=== PATIENT | female | born 2000 | race Caucasian/White ===

== ENCOUNTER 2019-07-26 02:09 | Emergency (ER) | payer SELFPAY ==
--- NOTE | 2019-07-26 02:15 | ED_ITS ---
Entered by Shawnee Mann, acting as scribe for Barrett Lan DO HPI - Chest Pain General: Chief Complaint: Chest Pain Stated Complaint: CHEST/BACK PAIN Time Seen by Provider: 07/26/19 02:15 Source: patient Limitations: no limitations History of Present Illness: HPI narrative: 19 yo f came to the er pov for chest and back pain. Onset was last night. Pt states that she has been having some chest pain in the center. Pt states that when she breathes in she had the chest pain. Pt stated that she is having some abd pain in the epigastric area. MD complaint: chest pain and other (back pain) Onset (ago): day(s) (last night ) Timing of current episode: episodic Prior episodes: Yes Onset: during rest Pain radiation: none Severity: mild Quality: sharp and other Relieving factors: nothing Exacerbating factors: nothing Associated symptoms: Reports dyspnea (mild), nausea, palpitations and vomiting; Deny abdominal pain or fever(s) Risk Factors: Thoracic aortic dissection risk factors: none Related Data: On Oral Contraceptives: No Review of Systems Const: Denies: fever or chills Eyes: Denies: change in vision or blurry vision ENMT: Denies: painful swallowing, swelling of lips/tongue, bleeding gums, dental pain, Change in hearing, nose bleeds, post nasal drip or facial/sinus pain Card: Reports: chest pain and palpitations; Denies: irregular heart rhythm or shortness of breath when lying down Resp: Reports: shortness of breath (mild); Denies: productive cough, non-productive cough or wheezing GI: Reports: nausea and vomiting; Denies: abdominal pain, blood in stool or black tarry stool : Denies: painful urination, urinary frequency, urinary urgency or blood in urine Musc: Denies: redness Skin/Breast: Denies: rash, itching or redness Neuro: Denies: headache, dizziness, vertigo, confusion or seizure-like activity PFSH ED PFSH: Statuses (acute, chronic, etc) shown below reflect problem list status as previously entered and may not be historically accurate Social History Smoking and tobacco status: never smoked Physical Exam Const: GENERAL APPEARANCE: well developed ORIENTATION/CONSCIOUSNESS: Yes oriented to person, Yes oriented to place and Yes oriented to time HENMT: COMMON NORMALS: normocephalic, external ears normal and external nose normal HEAD & SCALP: normocephalic; no scalp tenderness FACE & SINUS: normal facial exam NOSE: external nose normal and no nasal discharge EXTERNAL EAR: Yes external ears normal MOUTH: tongue normal TEETH & GINGIVA: no abnormal tooth and associated gingiva THROAT: posterior oropharynx normal; no peritonsillar mass Eye: COMMON NORMALS: PERRL, EOMs intact bilaterally and conjunctivae normal EYELID: eyelids normal CONJUNCTIVA: Yes conjunctivae normal PUPIL: Yes PERRL Neck/C-Spine: COMMON NORMALS: full ROM GENERAL: No tracheal deviation CERVICAL SPINE: Yes normal cervical lordosis and No cervical spine tenderness Chest: COMMONS NORMALS: inspection of chest normal CHEST: Yes tenderness Resp: COMMON NORMALS: clear to auscultation bilaterally EFFORT & INSPECTION: No tachypneic, No respiratory distress, No retractions, No uses accessory muscles and No tracheal deviation AUSCULTATION: clear to auscultation bilaterally, no rhonchi, no wheezes and lung sounds not diminished Cardio: COMMON NORMALS: regular rate and regular rhythm RATE: regular rate RHYTHM: regular rhythm HEART SOUNDS: no murmurs PERIPHERAL PULSES: radial pulses present GI: COMMON NORMALS: soft to palpation INSPECTION: No abdominal distension AUSCULTATION: No hyperactive bowel sounds and No hypoactive bowel sounds PALPATION: Yes soft, Yes tender (epigastric) Details: RUQ, No guarding and No rigid PERCUSSION: no dullness to percussion and no tympanic to percussion : COMMON NORMALS: Yes no CVA tenderness BLADDER/KIDNEY EXAM: Yes no CVA tenderness Back/Pelvis: COMMON NORMALS: no CVA tenderness Neuro: SENSORIUM/ORIENTATION: Yes oriented to person, Yes oriented to place and Yes oriented to time Psych: COMMON NORMALS: mental status grossly normal Skin: COMMON NORMALS: no rashes or lesions noted GENERAL SKIN EXAM: no rashes or lesions noted Course ED course: EKG shows sinus rhythm with sinus arrhythmia, no ST changes. Troponin is negative. White blood cell count was 14. Gallbladder ultrasound performed as she was tender over the right upper quadrant and had a minimal elevation of 1 liver enzyme was negative. She is improved significantly after Toradol. Vital Signs: Vital signs: Vital Signs Temperature 98.0 F 07/26/19 02:24 Pulse Rate 90 01/27/20 04:45 Respiratory Rate 16 07/26/19 04:45 Blood Pressure 122/77 07/26/19 04:45 Pulse Oximetry 97 07/26/19 04:45 MDM - Chest Pain Lab Data: Labs: Lab Results 07/26/19 07/26/19 07/26/19 Range/Units 02:58 02:58 02:58 WBC 14.1 H (4.5-13.0) 10^3/ uL RBC 4.59 (4.1-5.3) 10^6/u L Hgb 13.7 (11.5-15.3) g/dL Hct 40.6 (37.0-47.0) % MCV 88.5 (81-99) fL MCH 29.8 (28.0-34.0) pg MCHC 33.7 (30.0-36.0) g/dL RDW 11.9 L (12.1-15.1) % Plt Count 430 H (130-400) 10^3/c mm MPV 9.6 (7.4-10.4) fL Neut % (Auto) 56.7 % Lymph % (Auto) 34.2 % [place] % (Auto) 7.3 % Eos % (Auto) 1.2 % Baso % (Auto) 0.4 % Neut # (Auto) 8.0 (1.8-8.0) 10^3/u L Lymph # (Auto) 4.8 (1.5-6.5) 10^3/u L [place] # (Auto) 1.0 H (0.2-0.9) 10^3/u L Eos # (Auto) 0.2 (0.0-0.8) 10^3/u L Baso # (Auto) 0.1 (0.0-0.1) 10^3/u L Nucleated RBC % (a uto) 0 % Nucleated RBCs # 0.0 /100WBC Sodium 140 (136-145) mmol/L Potassium 3.7 (3.5-5.1) mmol/L Chloride 101 (98-107) mmol/L Carbon Dioxide 25 (22-29) mmol/L Anion Gap 17.7 (5-19) BUN 11 (6-20) mg/dL Creatinine 0.8 (0.5-0.9) mg/dL GFR Calculation 91.4 (90-130) mL/min Glucose 122 H (74-109) mg/dL Calcium 10.4 (8.5-10.5) mg/dL Total Bilirubin 0.2 (0.15-1.2) mg/dL AST 31 (0-32) U/L ALT 42 H (0-33) U/L Alkaline Phosphata se 48 (35-105) IU/L Troponin T Gen 5 n g/L 6 (0-10) ng/mL Total Protein 8.2 (6.6-8.7) g/dL Albumin 5.1 (3.5-5.2) g/dL Globulin 3.1 (1.3-4.6) g/dL Lipase 19 (13-60) U/L HCG, Qual (Negative) Urine Color (Yellow) Urine Appearance (CLEAR) Urine pH (5-7) Ur Specific Gravit y (1.005-1.030) Urine Protein (Negative) Urine Glucose (UA) (Normal) Urine Ketones (Negative) Urine Occult Blood (Negative) Urine Nitrate (Negative) Urine Bilirubin (NEGATIVE) Urine Urobilinogen (Negative) mg/dL Ur Leukocyte Kylee ase (Negative) Urine RBC (0-2) /hpf Urine WBC (0-5) /hpf Ur Squamous Epith Cells (0-5) Urine Bacteria (NONE) 07/26/19 07/26/19 Range/Units 02:58 03:28 WBC (4.5-13.0) 10^3/ uL RBC (4.1-5.3) 10^6/u L Hgb (11.5-15.3) g/dL Hct (37.0-47.0) % MCV (81-99) fL MCH (28.0-34.0) pg MCHC (30.0-36.0) g/dL RDW (12.1-15.1) % Plt Count (130-400) 10^3/c mm MPV (7.4-10.4) fL Neut % (Auto) % Lymph % (Auto) % [place] % (Auto) % Eos % (Auto) % Baso % (Auto) % Neut # (Auto) (1.8-8.0) 10^3/u L Lymph # (Auto) (1.5-6.5) 10^3/u L [place] # (Auto) (0.2-0.9) 10^3/u L Eos # (Auto) (0.0-0.8) 10^3/u L Baso # (Auto) (0.0-0.1) 10^3/u L Nucleated RBC % (a uto) % Nucleated RBCs # /100WBC Sodium (136-145) mmol/L Potassium (3.5-5.1) mmol/L Chloride (98-107) mmol/L Carbon Dioxide (22-29) mmol/L Anion Gap (5-19) BUN (6-20) mg/dL Creatinine (0.5-0.9) mg/dL GFR Calculation (90-130) mL/min Glucose (74-109) mg/dL Calcium (8.5-10.5) mg/dL Total Bilirubin (0.15-1.2) mg/dL AST (0-32) U/L ALT (0-33) U/L Alkaline Phosphata se (35-105) IU/L Troponin T Gen 5 n g/L (0-10) ng/mL Total Protein (6.6-8.7) g/dL Albumin (3.5-5.2) g/dL Globulin (1.3-4.6) g/dL Lipase (13-60) U/L HCG, Qual Negative (Negative) Urine Color Yellow (Yellow) Urine Appearance Clear (CLEAR) Urine pH 6.5 (5-7) Ur Specific Gravit y 1.020 (1.005-1.030) Urine Protein Neg (Negative) Urine Glucose (UA) Norm (Normal) Urine Ketones Negative (Negative) Urine Occult Blood Neg (Negative) Urine Nitrate Negative (Negative) Urine Bilirubin Neg (NEGATIVE) Urine Urobilinogen Norm (Negative) mg/dL Ur Leukocyte Kylee ase Negative (Negative) Urine RBC Rare (0-2) /hpf Urine WBC 0-4 H (0-5) /hpf Ur Squamous Epith Cells 0-4 H (0-5) Urine Bacteria Trace (NONE) Discharge Plan Discharge Patient Disposition: Home, Self-Care Clinical Impression: Atypical chest pain Condition: Stable Prescriptions: New ketorolac 10 mg tablet 10 mg PO Q8H PRN (Reason: pain) Qty: 10 RF: 0 Discharge Orders: Discharge Order (Routine); Ordered 07/26/19 Ordered By: Barrett Lan Referrals: Cristian Hirsch, LELO [Family Provider] - Discharge Diet: Advance as tolerated Discharge Activity: Increase activity as tolerated Patient Instructions: Chest Pain (ED), Costochondritis (ED) Activity Restrictions/Additional Instructions: Return for fever greater than 100, worsening shortness of breath, worsening pain despite treatment, other concerning symptoms Discharge Date/Time: 07/26/19 04:45 Coding Level of Care Code ED Burrer Hand for g Fwd The documentation recorded by the Johnathan fletcher Stephanie Lyn, accurately reflects the service I personally performed and the decisions made by Riky denson Jeremy John, DO Jul 26, 2019 02:09
[2019-07-26 02:24] VITALS: BP 129/85; PULSE 100; RESP 16; TEMP 36.7; O2SAT 99; BMI 33.5
--- NOTE | 2019-07-26 02:42 | US_ITS ---
WS: [id number] RIGHT UPPER QUADRANT ULTRASOUND HISTORY: RIGHT upper quadrant pain and tenderness. COMPARISON: None available. Liver: 15.7 cm in length. Normal size and echogenicity with no intrahepatic dilatation. No mass. Gallbladder: Normally distended gallbladder with no stones or wall thickening. CBD: 3.3 mm Pancreas: Normal size and echogenicity. Right kidney: 11.8 cm in length. Normal echogenicity with no mass or hydronephrosis. Aorta and IVC: Unremarkable. No ascites. US/US gall bladder [id number] IMPRESSION: Normal RIGHT upper quadrant ultrasound.
--- NOTE | 2019-07-26 02:42 | ECG_ITS ---
Measurements Intervals [place] Rate: 86 P: 33 ID: [id number] QRS: 69 QRSD: 100 T: 41 QT: 335 QTc: 401 SINUS RHYTHM WITH SINUS ARRHYTHMIA No previous ECG available for comparison Electronically Signed On 07-26-2019 17:51:36 HYBRID POWERTRAIN DEVELOPMENT ENGINEER by Tomeka Russo M.D. [email or web address]
--- NOTE | 2019-07-26 02:49 | XR_ITS ---
WS: [id number] CHEST XRAY TECHNIQUE: Portable chest. CLINICAL INFORMATION: cp COMPARISON: None. FINDINGS: Heart: Normal cardiac silhouette. Lungs: Lungs are clear. No consolidation or pleural effusion. Bones: Normal visualized bony structures. XR/XR chest 1V portable [id number] IMPRESSION: Normal chest
[2019-07-26] MEDS: ketorolac 30 mg/mL INJ IVP (02:59)
[2019-07-26] MEDS: ondansetron 2 mg/ML SDV 2 mL 4 MG IVP (02:59)
[2019-07-26 03:02] LABS: Basophils # 0.1 10^3/uL (0.0-0.1); Basophils % 0.4 %; Eosinophils # 0.2 10^3/uL (0.0-0.8); Eosinophils % 1.2 %; Hematocrit 40.6 % (37.0-47.0); Hemoglobin 13.7 g/dL (11.5-15.3); Lymphocytes # 4.8 10^3/uL (1.5-6.5); Lymphocytes % 34.2 %; Mean Corpuscular HGB Conc 33.7 g/dL (30.0-36.0); Mean Corpuscular Hemoglobin 29.8 pg (28.0-34.0); Mean Corpuscular Volume 88.5 fL (81-99); Mean Platelet Volume 9.6 fL (7.4-10.4); Monocytes % 7.3 %; Neutrophils % 56.7 %; Nucleated Red Blood Cells % 0 %; Platelet Count 430 10^3/cmm (130-400); Red Blood Count 4.59 10^6/uL (4.1-5.3); Red Cell Distribution Width 11.9 % (12.1-15.1); White Blood Count 14.1 10^3/uL (4.5-13.0)
[2019-07-26 03:22] LABS: HCG, Serum Qual Negative (Negative)
[2019-07-26 03:33] LABS: Alanine Aminotransferase 42 U/L (0-33); Albumin Level 5.1 g/dL (3.5-5.2); Alkaline Phosphatase 48 IU/L (35-105); Anion Gap 17.7 (5-19); Aspartate Amino Transferase 31 U/L (0-32); Blood Urea Nitrogen 11 mg/dL (6-20); Calcium 10.4 mg/dL (8.5-10.5); Carbon Dioxide 25 mmol/L (22-29); Chloride 101 mmol/L (98-107); Globulin 3.1 g/dL (1.3-4.6); Glomerular Filtration Rate 91.4 mL/min (90-130); Glucose 122 mg/dL (74-109); Lipase 19 U/L (13-60); Potassium 3.7 mmol/L (3.5-5.1); Sodium 140 mmol/L (136-145); Total Bilirubin 0.2 mg/dL (0.15-1.2); Total Protein 8.2 g/dL (6.6-8.7)
[2019-07-26 04:00] LABS: Troponin T (5th) Once 6 ng/mL (0-10)
[2019-07-26 04:14] LABS: Bacteria Urine TRACE; Bilirubin Urine Neg (NEGATIVE); Blood Urine Neg (Negative); Glucose Urine UA Norm (Normal); Ketones Urine Negative (Negative); Leukocyte Esterase Urine Negative (Negative); Nitrate Urine Negative (Negative); Protein Urine Neg (Negative); RBC Urine RARE /hpf (0-2); Squamous Epithelial Cell Urine 0-4 (0-5); Urine Appearance Clear (CLEAR); Urine Color Yellow (Yellow); Urobilinogen Urine Norm (Negative); WBC Urine 0-4 /hpf (0-5); pH Urine 6.5 (5-7)
[2019-07-26 04:45] VITALS: BP 122/77; PULSE 90; RESP 16; O2SAT 97
== END 2019-07-26 04:45 | disposition home or self-care (01) ==
PROVIDERS: Emergency Provider Emergency Medicine; Family Provider Nurse Practitioner Family
DX: R07.89 Other chest pain (principal)
CPT/HCPCS: 71045; 76705; 80053; 81001; 83690; 84484; 84703; 85025; 93005; 96374; 99281; J1885; J2405

== ENCOUNTER → 2020-03-17 11:22 | Outpatient (BNVA) | payer SELFPAY | PROVIDERS: Family Provider Nurse Practitioner Family; Visit Provider Nurse Practitioner Women's Health | DX: Z01.419 Encounter for gynecological examination (general) (routine) without abnormal findings (principal); N91.5 Oligomenorrhea, unspecified | CPT/HCPCS: 83036; 84146; 84439; 84443; 84702; 88175 ==

== ENCOUNTER → 2020-07-20 14:19 | Outpatient (BNVA) | payer SELFPAY | PROVIDERS: Family Provider Nurse Practitioner Family; Visit Provider Nurse Practitioner Women's Health | DX: N97.0 Female infertility associated with anovulation (principal); E28.2 Polycystic ovarian syndrome; R68.82 Decreased libido | CPT/HCPCS: 81025 ==

== ENCOUNTER → 2023-02-12 13:05 | Outpatient (BNVA) | payer OTHER, SELFPAY | PROVIDERS: Family Provider Nurse Practitioner Family; PCP Family Medicine; Visit Provider Family Medicine | DX: R53.83 Other fatigue (principal); R68.82 Decreased libido; E28.2 Polycystic ovarian syndrome; D64.9 Anemia, unspecified | CPT/HCPCS: 80053; 82306; 82607; 82728; 83540; 83735; 84402; 84439; 84443; 84481; 85025 ==

== ENCOUNTER 2023-02-27 13:16 | Outpatient (CLI) | payer OTHER, BC, MEDICAID, SELFPAY ==
--- NOTE | 2023-02-27 13:30 | US_ITS ---
WS: [id number] US pelv w/transvag [id number] HISTORY: suspect pcos COMPARISON: None available. Uterus: 8.8 cm x 4.2 cm x 3.3 cm. Normal size anteverted uterus. No fibroid or mass. Endometrium: 1.5 cm. Mildly prominent endometrium. No mass or increased vascularity. There is no foca l mass or increased vascularity identified. Right ovary: 3.3 cm x 1.9 cm x 4.2 cm. Normal size and vascularity, no cystic or solid masses. Severa l small peripheral follicles throughout the ovary. The number of follicles does appear to be less cassy n 20. Left ovary: 4.3 cm x 2.3 cm x 3.7 cm. Normal size and vascularity, no cystic or solid masses. Several small follicles throughout the ovary. The number of follicles is probably less than 20. No free fluid in the cul-de-sac. IMPRESSION: 1. Mildly thickened endometrium but otherwise negative. 2. Numerous follicles within each ovary but the number of follicles is less than 20. By imaging canno t confirm PCOS.
== END 2023-02-27 13:17 | disposition home or self-care (01) ==
PROVIDERS: PCP Family Medicine; Visit Provider Family Medicine
DX: N97.0 Female infertility associated with anovulation (principal); R93.89 Abnormal findings on diagnostic imaging of other specified body structures
CPT/HCPCS: 76830; 76856

== ENCOUNTER → 2023-12-29 15:31 | Outpatient (BNVA) | payer OTHER, SELFPAY | PROVIDERS: PCP Family Medicine; Visit Provider Family Medicine | DX: N93.9 Abnormal uterine and vaginal bleeding, unspecified (principal); D64.9 Anemia, unspecified | CPT/HCPCS: 82728; 83540; 85025 ==

== ENCOUNTER → 2023-12-31 14:23 | Outpatient (BNVA) | payer OTHER, SELFPAY | PROVIDERS: PCP Family Medicine; Visit Provider Family Medicine | DX: N97.0 Female infertility associated with anovulation (principal) | CPT/HCPCS: 85025 ==

== ENCOUNTER 2024-12-16 07:37 | Emergency (ER) | payer OTHER, SELFPAY ==
[2024-12-16 07:51] VITALS: BP 132/103; PULSE 100; RESP 18; TEMP 36.9; O2SAT 100
--- NOTE | 2024-12-16 08:07 | ED_ITS ---
HPI - Female Genitourinary 2 General: Chief complaint: Urogenital-Female Stated complaint: burning with urinating Time Seen by Provider: 12/16/24 07:49 History of Present Illness: 24-year-old female presents emergency ro om with intermittent UTIs the last couple of months she has been treated with a round of antibiotics she finished around 3 weeks ago but her symptoms never seem like they really resolved having some suprapubic tenderness and cramping as well as some mild flank pain she having her period now but she also thinks she has had some hematuria no history of kidney stones previous culture showed E. coli and her antibiotic was adjusted for the results of the culture through a local clinic that she was seen at Associated symptoms: Reports abdominal pain (Suprapubic); Deny nausea Related Data Home Medications ?Medication ?Instructions ?Recorded ?Confirmed Lactobacillus 40-Bifidobact 1 cap PO DAILY 12/16/24 3-S.thermophilus 100 billion cell capsule (Probiotic) cholecalciferol (vitamin D3) 25 25 mcg PO DAILY 12/16/24 mcg (1,000 unit) tablet (Vitamin D3) d-mannose 500 mg capsule 500 mg PO BID 12/16/2412/16 ferrous sulfate 325 mg (65 mg 325 mg PO DAILY 12/16/24 12/16/24 iron) tablet (Iron (ferrous sulfate)) tirzepatide (weight loss) 10 10 mg SUBCUT Q7D 12/16/24 12/16/24 mg/0.5 mL subcutaneous pen injector (Zepbound) Allergies Allergy/AdvReac Type Severity Reaction Status Date / Time No Known Allergies Allergy Verified 12/29/23 15:18 Review of Systems 2 Const: Denies: fever(s) or chills Card: Denies: chest pain Resp: Denies: dyspnea GI: Reports: abdominal pain (Suprapubic) and GI cramping; Denies: nausea or vomiting : Reports: flank pain, dysuria, urinary frequency and urinary urgency Musc: Denies: neck pain or back pain Skin/Breast: Denies: rash PFSH ED 2 PFSH: Medical History PCOS (polycystic ovarian syndrome) Surgical History History of appendectomy Family History Grandmother CAD (coronary artery disease) Maternal Diabetes Maternal Family history of premature coronary artery disease Maternal Hypertension Maternal Stroke Maternal Grandfather CAD (coronary artery disease) Paternal Diabetes Paternal Hypertension Paternal Family/Other Diabetes Paternal Uncle Denies family history of Cancer Social History Smoking and tobacco/nicotine status: never used tobacco/nicotine Alcohol intake: never Substance/Drug Use: never Lives independently: Yes Household members: spouse Marital status: Number of children: 0 Current occupational status: employed Current occupation: nurse case manager for [employer] Dominique/Yazidi: Buddhist Physical Exam 2 Const: COMMON NORMALS: no acute distress GENERAL APPEARANCE: cooperative and comfortable ORIENTATION/CONSCIOUSNESS: Yes awake, Yes oriented to person, Yes oriented to place and Yes oriented to time HENMT: COMMON NORMALS: normocephalic, atraumatic and hearing grossly normal bilaterally HEAD & SCALP: normocephalic and atraumatic Resp: COMMON NORMALS: normal respiratory effort, No retractions, No use of accessory muscles and clear to auscultation bilaterally AUSCULTATION: clear to auscultation bilaterally Cardio: COMMON NORMALS: regular rate, regular rhythm and No murmurs present (Cardio) RATE: regular rate RHYTHM: regular rhythm GI: COMMON NORMALS: Soft to palpation and No hepatosplenomegaly present A USCULTATION: Yes normoactive bowel sounds PALPATION: Yes Soft to palpation, No Tenderness to palpation present (GI), No Guarding due to palpation present (GI) and Yes No hepatosplenomegaly present Extremity: COMMON NORMALS: normal to inspection, capillary refill normal, no clubbing, cyanosis or edema, no calf tenderness and no pedal edema Neuro: SENSORIUM/ORIENTATION: Yes oriented to person, Yes oriented to place and Yes oriented to time Skin: COMMON NORMALS: no rashes or lesions noted GENERAL SKIN EXAM: no rashes or lesions noted Course 2 Vital Signs: Vital signs: Vital Signs Temperature 98.4 F 12/16/24 07:51 Pulse Rate 87 12/16/24 12:40 Respiratory Rate 18 12/16/24 10:30 Blood Pressure 117/82 12/16/24 12:40 Pulse Oximetry 99 12/16/24 12:40 Oxygen Delivery Me thod Room Air 12/16/24 10:30 MDM - Female Medical Decision Making Mild hematuria but CT is negative for any stones or any other abnormalities no clear-cut signs of infection. She does have some cholelithiasis however there is no signs of obstruction no signs of acute cholecystitis. Suspect some of her symptoms may just be plain gastroenteritis as other issues are incidental. Will discharge patient home clear liquid diet ever advance as tolerated if she has persistent symptoms follow-up with primary care doctor. Lab Data 12/16/24 08:30 12/16/24 08:30 Radiology Impressions Gallbladder Ultrasound 12/16/24 09:53 IMPRESSION: Cholelithiasis without sonographic evidence of acute cholecystitis. Abdomen/Pelvis CT 12/16/24 11:15 IMPRESSION: 1. Limited noncontrast examination without CT evidence of acute intra-abdominal or pelvic pathology. 2. Additional findings, as above. Laboratory Results WBC 4.50 10^3/uL (3.29-11.43) 12/16/24 08:30 RBC 4.33 10^6/uL (3.85-5.65) 12/16/24 08:30 Hgb 11.70 g/dL (11.27-16.99) 12/16/24 08:30 Hct 36.3 % (36-47) 12/16/24 08:30 MCV 83.8 fl (85-98) L 12/16/24 08:30 MCH 27.0 pg (27-33) 12/16/24 08:30 MCHC 32.2 g/dL (30-55) 12/16/24 08:30 RDW 14.1 % (12.1-15.1) 12/16/24 08:30 Plt Count 307 10^3/cmm (157-399) 12/16/24 08:30 MPV 9.6 fL (7.4-10.4) 12/16/24 08:30 Neut % (Auto) 42.6 % 12/16/24 08:30 Lymph % (Auto) 47.8 % 12/16/24 08:30 [place] % (Auto) 7.8 % 12/16/24 08:30 Eos % (Auto) 0.9 % 12/16/24 08:30 Baso % (Auto) 0.7 % 12/16/24 08:30 Neut # (Auto) 1.92 10^3/uL (1.8-7.7) 12/16/24 08:30 Lymph # (Auto) 2.2 10^3/uL (0.8-4.8) 12/16/24 08:30 [place] # (Auto) 0.4 10^3/uL (0.2-0.9) 12/16/24 08:30 Eos # (Auto) 0.0 10^3/uL (0.0-0.8) 12/16/24 08:30 Baso # (Auto) 0.0 10^3/uL (0.0-0.1) 12/16/24 08:30 Nucleated RBC % (auto) 0 % 12/16/24 08:30 Nucleated RBCs # 0.0 /100WBC 12/16/24 08:30 Sodium 142 mmol/L (136-145) 12/16/24 08:30 Potassium 4.0 mmol/L (3.5-5.1) 12/16/24 08:30 Chloride 108 mmol/L (98-107) H 12/16/24 08:30 Carbon Dioxide 22 mmol/L (22-29) 12/16/24 08:30 Anion Gap 16.0 (5-19) 12/16/24 08:30 BUN 9 mg/dL (6-20) 12/16/24 08:30 Creatinine 0.8 mg/dL (0.5-0.9) 12/16/24 08:30 GFR Calculation 87.4 mL/min (90-130) L 12/16/24 08:30 Glucose 101 mg/dL (65-115) 12/16/24 08:30 Calculated Osmolality 293 mOsm/kg (285-295) 12/16/24 08:30 Calcium 9.1 mg/dL (8.5-10.5) 12/16/24 08:30 Total Bilirubin 0.2 mg/dL (0.15-1.2) 12/16/24 08:30 AST 36 U/L (0-32) H 12/16/24 08:30 ALT 35 U/L (0-33) H 12/16/24 08:30 Alkaline Phosphatase 31 U/L (35-105) L 12/16/24 08:30 Total Protein 7.5 g/dL (6.6-8.7) 12/16/24 08:30 Albumin 4.1 g/dL (3.5-5.2) 12/16/24 08:30 Globulin 3.4 g/dL (1.3-4.6) 12/16/24 08:30 HCG, Qual Negative (Negative) 12/16/24 08:15 Urine Color Yellow (Yellow) 12/16/24 08:15 Urine Appearance Clear (CLEAR) 12/16/24 08:15 Urine pH 5.5 (5-7) 12/16/24 08:15 Ur Specific [place] 1.035 (1.005-1.030) H 12/16/24 08:15 Urine Protein Trace (Negative) A 12/16/24 08:15 Urine Glucose (UA) Negative (Normal) 12/16/24 08:15 Urine Ketones Trace (Negative) 12/16/24 08:15 Urine Blood 1+ (Negative) A 12/16/24 08:15 Urine Nitrate Negative (Negative) 12/16/24 08:15 Urine Bilirubin Negative (Negative) 12/16/24 08:15 Urine Urobilinogen 1.0 mg/dL (Negative) 12/16/24 08:15 Ur Leukocyte Esterase Negative (Negative) 12/16/24 08:15 Urine RBC 6-10 /hpf (0-2) 12/16/24 08:15 Urine WBC 0-5 /hpf (0-5) 12/16/24 08:15 Ur Squamous Epith Cells 0-5 /hpf (0-5) 12/16/24 08:15 Amorphous Sediment Not Reportable 12/16/24 08:15 Urine Bacteria None seen /hpf (NONE) 12/16/24 08:15 Hyaline Casts 2.05 /lpf 12/16/24 08:15 Urine Mucus 1+ /hpf 12/16/24 08:15 All radiology interpretation(s) finalized by discharge Discharge Plan Discharge Patient Disposition: Home Clinical Impression: Abdominal pain, Enteritis, Cholelithiasis Condition: Stable Prescriptions: No Action cholecalciferol (vitamin D3) [Vitamin D3] 25 mcg (1,000 unit) Tablet 25 mcg PO DAILY d-mannose 500 mg Capsule 500 mg PO BID Zepbound 10 mg/0.5 mL pen injector 10 mg SUBCUT Q7D ferrous sulfate [Iron (ferrous sulfate)] 325 mg (65 mg iron) Tablet 325 mg PO DAILY Probiotic 100 billion cell Capsule 1 cap PO DAILY Discharge Orders: Discharge ED (Routine); Ordered 12/16/24 Ordered By: Michael Pires Referrals: Maria Esther Ross MD [Primary Care Provider, [facility]] Discharge Diet: Clear Liquid Discharge Activity: Increase activity as tolerated Patient Instructions: Abdominal Pain (ED), Opioid Safety, Pain Management Activity Restrictions/Additional Instructions: Thank you for choosing [facility] for your healthcare needs today. It is very important that you follow up as instructed or that you return to the Emergency Department should you have concerns or if your condition changes or worsens in any way. You were seen in the emergency room with abdominal discomfort. CT did not show any acute abnormalities ultrasound of the gallbladder showed a large gallbladder stone but no signs of acute gallbladder infection or inflammation. You did have a small amount of blood in your urine the CT did not show any kidney stones or other abnormality. There was no clear sign of infection either. Will discharge home recommend clear liquid diet for 1 to 2 days and follow-up with your primary care doctor if symptoms are persisting. We reviewed signs and symptoms of gallbladder disease if you experience these follow-up with your primary care doctor or return to the emergency room. Print Language: South African Coding Level of Care Code ED Pharmacist Critical Care for Mahamed Fox
[2024-12-16 08:42] LABS: Basophils % 0.7 %; Eosinophils % 0.9 %; Hematocrit 36.3 % (36-47); Lymphocytes # 2.2 10^3/uL (0.8-4.8); Lymphocytes % 47.8 %; Mean Corpuscular HGB Conc 32.2 g/dL (30-55); Mean Corpuscular Volume 83.8 fl (85-98); Mean Platelet Volume 9.6 fL (7.4-10.4); Monocytes # 0.4 10^3/uL (0.2-0.9); Monocytes % 7.8 %; Neutrophils # 1.92 10^3/uL (1.8-7.7); Neutrophils % 42.6 %; Nucleated Red Blood Cells % 0 %; Platelet Count 307 10^3/cmm (157-399); Red Blood Count 4.33 10^6/uL (3.85-5.65); Red Cell Distribution Width 14.1 % (12.1-15.1)
[2024-12-16 08:47] LABS: Bilirubin Urine Negative (Negative); Blood Urine 1+ (Negative); Glucose Urine UA Negative (Normal); HCG Qualitative Urine. Negative (Negative); Ketones Urine Trace (Negative); Leukocyte Esterase Urine Negative (Negative); Nitrate Urine Negative (Negative); Protein Urine Trace (Negative); Urine Appearance Clear (CLEAR); Urine Color Yellow (Yellow); pH Urine 5.5 (5-7)
[2024-12-16 08:52] LABS: Add Urine Microscopic? YES; Bacteria Urine None Seen /hpf; Hyaline Casts Urine 2.05 /lpf; Squamous Epithelial Cell Urine 0-5 /hpf (0-5); WBC Urine 0-5 /hpf (0-5)
[2024-12-16 09:09] LABS: Specific Gravity, Urine 1.035 (1.005-1.030)
[2024-12-16 09:09] LABS: Alanine Aminotransferase 35 U/L (0-33); Albumin Level 4.1 g/dL (3.5-5.2); Alkaline Phosphatase 31 U/L (35-105); Aspartate Amino Transferase 36 U/L (0-32); Blood Urea Nitrogen 9 mg/dL (6-20); Calcium 9.1 mg/dL (8.5-10.5); Carbon Dioxide 22 mmol/L (22-29); Chloride 108 mmol/L (98-107); Creatinine Clr Calc Pharmacy 116.9708; Globulin 3.4 g/dL (1.3-4.6); Glomerular Filtration Rate 87.4 mL/min (90-130); Glucose 101 mg/dL (65-115); Osmolality Calculated 293 mOsm/kg (285-295); Sodium 142 mmol/L (136-145); Total Bilirubin 0.2 mg/dL (0.15-1.2); Total Protein 7.5 g/dL (6.6-8.7)
[2024-12-16 09:10] LABS: UA Slide Review UA Slide Review Perf
[2024-12-16 09:11] LABS: Add Urine Culture? No; Mucus Urine 1+ /hpf
[2024-12-16 09:52] VITALS: BP 97/61; PULSE 98; O2SAT 99
--- NOTE | 2024-12-16 09:53 | USR_ITS ---
PROCEDURE INFORMATION: Exam: US Abdomen, Limited; Right Upper Quadrant Exam date and time: 12/16/2024 10:56 AM Age: 24 years old Clinical indication: Abnormal findings; Abnormal lab test; Elevated liver enzymes; Additional info: Elevated lfts TECHNIQUE: Imaging protocol: Real time ultrasound of the abdomen with image documentation. Limited exam focused on the right upper quadrant. COMPARISON: US gall bladder [id number] 07/26/2019 3:07 AM FINDINGS: Liver: Unremarkable. Gallbladder: Cholelithiasis without gallbladder wall thickening or pericholecystic fluid. Negative sonographic Vanegas's sign, as per the truckload checker. Biliary ducts: No stones. No ductal dilatation. Pancreas: Unremarkable as visualized. Right kidney: No mass. No definite stones. No hydronephrosis. US/US gall bladder [id number] IMPRESSION: Cholelithiasis without sonographic evidence of acute cholecystitis.
[2024-12-16 10:30] VITALS: BP 83/58; PULSE 90; RESP 18; O2SAT 98
--- NOTE | 2024-12-16 10:51 | PC.NURSE ---
pt had x2 hypotensive blood pressure readings, contacted Dr. Pires, verbal orders for normal saline bolus.
[2024-12-16] MEDS: sodium chloride 0.9% 1,000 ML 999 ML IV (10:52)
--- NOTE | 2024-12-16 11:15 | CTR_ITS ---
PROCEDURE INFORMATION: Exam: CT Abdomen And Pelvis Without Contrast Exam date and time: 12/16/2024 11:37 AM Age: 24 years old Clinical indication: Abdominal pain; Localized; Prior surgery; Surgery date: 6+ months; Surgery type: Appendectomy; Lower abdominal tightness and nausea with intermittent lower back pain; Additional info: Hematuria TECHNIQUE: Imaging protocol: Computed tomography of the abdomen and pelvis without contrast. Axial, coronal and sagittal reformatted images were created and reviewed. Radiation optimization: All CT scans at this facility use at least one of these dose optimization techniques: automated exposure control; mA and/or kV adjustment per patient size (includes targeted exams where dose is matched to clinical indication); or iterative reconstruction. COMPARISON: US gall bladder [id number] 12/16/2024 10:56 AM RADIATION DOSE METRICS: Total DLP (mGy-cm): 826.94 FINDINGS: Liver: Unremarkable. Gallbladder and biliary ducts: Cholelithiasis. Pancreas: Unremarkable. Spleen: Unremarkable. Adrenal glands: Normal. No mass. Kidneys and ureters: No mass. No radiodense calculi. No hydronephrosis. Stomach and bowel: No bowel wall thickening. No obstruction. No pneumatosis. Appendix: Status post appendectomy by history. Intraperitoneal space: No free fluid. No organized fluid collection. No free air. Vasculature: Unremarkable. No aneurysm. Lymph nodes: Small mesenteric lymph nodes, nonspecific in appearance. No pathologically enlarged lymph nodes. Urinary bladder: Unremarkable as visualized. Reproductive: Unremarkable. Bones/joints: No acute osseous abnormality. Mild degenerative changes. Soft tissues: Unremarkable. CT/CT kidney stone [id number] IMPRESSION: 1. Limited noncontrast examination without CT evidence of acute intra-abdominal or pelvic pathology. 2. Additional findings, as above.
[2024-12-16 11:57] VITALS: BP 115/72; PULSE 80; O2SAT 99
[2024-12-16 12:40] VITALS: BP 117/82; PULSE 87; O2SAT 99
== END 2024-12-16 12:44 | disposition home or self-care (01) ==
PROVIDERS: Emergency Provider Family Medicine; PCP Family Medicine
DX: R10.9 Unspecified abdominal pain (principal); K52.9 Noninfective gastroenteritis and colitis, unspecified; K80.20 Calculus of gallbladder without cholecystitis without obstruction
CPT/HCPCS: 36415; 74176; 76705; 80053; 81001; 81025; 85025; 96360; 96361; 99284; J7030

== ENCOUNTER 2025-02-23 08:27 | Outpatient (CLI) | payer OTHER, SELFPAY ==
[2025-02-23 10:20] LABS: Hematocrit 37.0 % (36-47); Hemoglobin 11.70 g/dL (11.27-16.99); Mean Corpuscular HGB Conc 31.6 g/dL (30-55); Mean Corpuscular Hemoglobin 26.7 pg (27-33); Mean Corpuscular Volume 84.5 fl (85-98); Nucleated Red Blood Cells % 0 %; Platelet Count 476 10^3/cmm (157-399); Red Blood Count 4.38 10^6/uL (3.85-5.65); White Blood Count 9.90 10^3/uL (3.29-11.43)
[2025-02-23 11:08] LABS: Estmated Average Glucose 103; Hemoglobin A1C 5.2 % (4.0-6.0)
[2025-02-23 11:10] LABS: Alanine Aminotransferase 18 U/L (0-33); Albumin Level 4.4 g/dL (3.5-5.2); Alkaline Phosphatase 31 U/L (35-105); Anion Gap 13.7 (5-19); Aspartate Amino Transferase 19 U/L (0-32); Blood Urea Nitrogen 11 mg/dL (6-20); CRP High Sensitivity Cardiac 1.090 mg/dL (0.0-0.3); Calcium 9.4 mg/dL (8.5-10.5); Carbon Dioxide 25 mmol/L (22-29); Chloride 102 mmol/L (98-107); Cholesterol 199 mg/dL (0-200); Ferritin 16 ng/mL (15-150); Follicle Stimulating Hormone 3.4 mIU/mL; Globulin 3.7 g/dL (1.3-4.6); Glucose 87 mg/dL (65-115); HDL Cholesterol 49 mg/dL (60-100); Iron 97 ug/dL (37-145); Magnesium 1.9 mg/dL (1.7-2.3); Osmolality Calculated 283 mOsm/kg (285-295); Potassium 3.7 mmol/L (3.5-5.1); Sodium 137 mmol/L (136-145); Thyroid Stimulating Hormone 3.08 uIU/mL (0.27-4.20); Total Iron Binding Capacity 353 mcg/dl; Total Protein 8.1 g/dL (6.6-8.7); Triglycerides 79 mg/dL (0-150); Unsaturated Iron Binding 256 ug/dL (112-347); Vitamin B12 506 pg/mL (232-1245)
[2025-02-23 11:39] LABS: Free T4 Free Thyroxine 1.18 ng/dL (0.82-1.77)
[2025-02-24 05:06] LABS: Insulin ( Reference Lab Test) 15.4 uIU/mL
[2025-02-25 18:04] LABS: Thyroid Peroxidase Antobodies 11 IU/mL (<9)
[2025-02-27 00:40] LABS: Prolactin, Monomeric 18.0 ng/mL (3.2-25.2); Prolactin, Total 23.8 ng/mL
== END 2025-02-23 08:28 | disposition home or self-care (01) ==
PROVIDERS: PCP Family Medicine; Visit Provider Nurse Practitioner Women's Health
DX: Z13.220 Encounter for screening for lipoid disorders (principal); N92.6 Irregular menstruation, unspecified; Z13.29 Encounter for screening for other suspected endocrine disorder; Z13.1 Encounter for screening for diabetes mellitus; Z13.0 Encounter for screening for diseases of the blood and blood-forming organs and certain disorders involving the immune mechanism; Z13.21 Encounter for screening for nutritional disorder; E27.49 Other adrenocortical insufficiency; L65.9 Nonscarring hair loss, unspecified
CPT/HCPCS: 36415; 80053; 80061; 82040; 82306; 82525; 82533; 82607; 82627; 82670; 82677; 82728; 82746; 82785; 82977; 83001; 83002; 83036; 83090; 83525; 83540; 83550; 83735; 84140; 84144; 84146; 84270; 84403; 84432; 84439; 84443; 84480; 84482; 84630; 85025; 86141; 86376; 86800